=== PATIENT | female | born 1975 ===

== ENCOUNTER 2021-01-16 06:30 | Day surgery (SDC) | payer OTHER ==
[~2021-01-16 06:30] MED LIST: SYNTHROID100 MCG; SYNTHROID150 MCG PO
[2021-01-16] MEDS ORDERED: PERCOCET 5-3251 EACH PO (09:14)
[2021-01-16] MEDS ORDERED: COLACE100 MG PO (09:14)
== END 2021-01-16 12:15 | disposition home or self-care (01) ==
LOC: CIR.AMB 06:30
PROVIDERS: ATTEND Surgery
DX: K60.1 Chronic anal fissure (principal); K62.4 Stenosis of anus and rectum; Z20.822 Contact with and (suspected) exposure to COVID-19
CPT/HCPCS: 46700; 46200; 46505; J0585